=== PATIENT | male | born 1975 | race Caucasian/White ===

== ENCOUNTER → 2019-12-27 | Outpatient (CLI) | payer OTHER ==
--- NOTE | 2019-12-27 10:25 | REP ---
REASON FOR EXAM: Atraumatic back pain. COMPARISON: None. FINDINGS: Five views of the lumbosacral spine show no acute fracture, dislocation or subluxation. The intervertebral disc spaces are symmetric and well maintained. There is no spondylolysis or spondylolisthesis. The pedicles are intact bilaterally and there is no destructive osseous lesion. There is minimal anterior lipping seen involving the superior endplate of L4. IMPRESSION: Unremarkable lumbosacral spine series. Electronically Signed by Johan King DO 12/27/2019 11:08 A
== END ==
LOC: M WUC 09:31
PROVIDERS: ATTEND Physician Assistant
DX: M54.5 Low back pain (principal)